=== PATIENT | male | born 1985 | race Hispanic/Latino ===

== ENCOUNTER 2024-01-04 07:52 | Emergency (ER) | payer SELFPAY ==
[2024-01-04 07:54] VITALS: BP 155/100
[2024-01-04 08:17] VITALS: BP 153/77
[2024-01-04] MEDS: ADACEL 0.5 ML IM (09:08)
[2024-01-04] MEDS: ANCEF 10 IV (09:08)
--- NOTE | 2024-01-04 09:17 | ED.GENMED ---
History of Present Illness
General
Chief Complaint: Skin Surface Trauma
Time Seen by Provider: 01/04/24 07:58
History of Present Illness
History of Present Illness:
38-year-old male presents to the emergency department for evaluation of a crush injury to the left middle finger. Was at work when his finger got crushed underneath a trailer hitch. There is a large laceration to the ulnar aspect with exposed
osseous and tendon tissue. Last tetanus is not known
Review of Systems
Review of Systems
Allergies reviewed?: Yes
All Other Systems: ROS reviewed and negative except as documented in HPI and ROS
Phy Exam
Physical Exam
Physical Exam:
GEN: Well appearing, NAD, WDWN
HEENT: Oral mucosa moist, no scleral icterus
Cardiac: Regular rate
Lung: No respiratory distress, no tachypnea
MSK: 5cm full thickness laceration to L middle finger from distal phalanx through middle phalanx, exposed osseus tissue and suspected tendon laceration
Skin: Good color, no pallor or jaundice, no rashes
Neuro: AO x3, moves all extremities freely
Psych: Calm, cooperative
Course
Orders/Labs/Results
Orders:
Orders
01/04/24 08:12
CeFAZolin 2 GRAM [Ancef] 2 grams in 10 ml IV NOW
Tetanus/Diphth/Acelpertussis [Adacel] 0.5 ml IM .ONCE ONE
CR Finger(s)/thumb Min 2 Vw Lt Urgent
Comment:
Reason For Exam: L middle finger crush injury
Indicate Which Finger:: Middle Finger
01/04/24 09:21
Oxycodone [Roxicodone] 5 mg PO NOW STA
Vital Signs
Initial and Last Documented VS:
Initial Vital Signs
Temp Pulse Resp BP Pulse Ox
98.2 F 86 18 155/100 100
01/04/24 07:54 01/04/24 07:54 01/04/24 07:54 01/04/24 07:54 01/04/24 07:54
Last Documented Vital Signs
Temp Pulse Resp BP Pulse Ox
98.2 F 104 18 153/77 99
01/04/24 07:54 01/04/24 08:17 01/04/24 08:17 01/04/24 08:17 01/04/24 08:17
Procedures
Laceration Closure
Left Third Finger:
Status of Wound: clean
Size of Wound in cm: 5
Description of Wound Edges: sharp
Preparation: cleaned with saline
Anesthesia: 1% Lidocaine with epi
Revision/Debridement: irrigate-direct pressure
Wound exploration: explored to base- no FB
Type of Closure: single layer closure
Skin Closure Material: 4-0 prolene
Additional information:
Single running suture, loosely closed
MDM/Problems Addressed
MDM/Problems Addressed:
Clinical and radiographic images were sent to hand surgery Dr. Glez for review, loose closure with reduction of fracture fragments and splinting performed in the ED and will be seen by Dr. Glez later this afternoon in the orthopedic office.
IV cefazolin and tetanus immunization booster administered in the ED, will prescribe pain medication and antibiotics prophylactically
*Critical Care Note
Total Time (30-74mins, 75-104mins- exclusive of procedures): Not Applicable
ED Attending Note
-
Portions of this chart may have been created with voice recognition software.� Occasional wrong word or��sound alike� substitutions may have occurred due to the inherent limitations of voice recognition software.
Discharge Plan
Departure
Patient Disposition: Home (Routine Discharge)
Date of Disposition: 01/04/24
Time of Disposition: 09:17
Patient with high blood pressure during this ER visit?: Yes
Discharge Problem:
Open fracture of middle phalanx of left middle finger
Prescriptions:
New
cephalexin 500 mg capsule
500 mg PO Q8H 7 Days Qty: 21 0RF
oxycodone 5 mg tablet
5 mg PO Q8H PRN (Reason: Pain) Qty: 12 0RF
Referrals:
Anthony Donaldson MD [Active] -
Activity Restrictions/Additional Instructions:
Go directly to the [facility] office at the ambulatory building at the hospital, you will be seeing Dr Donaldson. If there are any issues with his appointment and you cannot be seen, come back to the ER.
I have sent prescriptions to your pharmacy for antibiotics and pain medicine. Please start these medicines at your earliest convenience
Interventions
Interventions:
*Risk Screen - Suicide Last Done: 01/04/24 07:54
*General Assessment Last Done: 01/04/24 07:54
*Neglect/Abuse Screening Last Done: 01/04/24 07:54
ED- Fall Risk Assessment Last Done: 01/04/24 09:00
*ED COVID-19 Vaccine History Last Done: 01/04/24 08:07
*Nursing Disposition Last Done: 01/04/24 09:47
ED-Skin Assessment Last Done: 01/04/24 09:00
Discharge Date and Time
Discharge Date/Time: 01/04/24 09:48
Print Language: SURINAMESE
[2024-01-04] MEDS: ROXICODONE 5 MG PO (09:42)
== END 2024-01-04 09:48 | disposition home or self-care (01) ==
LOC: EMR 07:52
PROVIDERS: EMERGENCY PHYSICIAN Emergency Medicine
DX: S62.623B Displaced fracture of middle phalanx of left middle finger, initial encounter for open fracture (principal); W23.0XXA Caught, crushed, jammed, or pinched between moving objects, initial encounter; Z23 Encounter for immunization
CPT/HCPCS: 99285; 13132; 96374; 90471; 73140; 90715

== ENCOUNTER 2024-01-08 06:18 | Day surgery (SDC) | payer OTHER, SELFPAY ==
[2024-01-08] VITALS (10 sets, daily range): BP systolic 127–151; BP diastolic 83–99; BMI 29.8
[2024-01-08] MEDS: CELEBREX 200 MG PO (10:36)
[2024-01-08] MEDS: TYLENOL 1000 MG PO (10:36)
[2024-01-08] MEDS: ZOFRAN 4 MG IV (16:17)
== END 2024-01-08 16:55 | disposition home or self-care (01) ==
LOC: SDS 06:18
PROVIDERS: ATTENDING PHYSICIAN Orthopaedic Surgery Hand Surgery
DX: S67.193A Crushing injury of left middle finger, initial encounter (principal); W23.0XXA Caught, crushed, jammed, or pinched between moving objects, initial encounter; Y99.0 Civilian activity done for income or pay
CPT/HCPCS: 26075; 26418; C1713

== ENCOUNTER 2024-03-28 11:46 | Outpatient (RCR) | payer OTHER, SELFPAY | END 2024-03-28 23:59 | disposition home or self-care (01) | LOC: ROT 11:46 | PROVIDERS: ATTENDING PHYSICIAN Orthopaedic Surgery Hand Surgery | DX: Z47.89 Encounter for other orthopedic aftercare (principal); Z73.6 Limitation of activities due to disability | CPT/HCPCS: 97010; 97110; 97140; 97166; 97535; 97760 ==

== ENCOUNTER 2024-04-25 10:07 | Outpatient (RCR) | payer OTHER, SELFPAY | END 2024-04-25 23:59 | disposition home or self-care (01) | LOC: ROT 10:07 | PROVIDERS: ATTENDING PHYSICIAN Orthopaedic Surgery Hand Surgery | DX: Z47.89 Encounter for other orthopedic aftercare (principal); R53.1 Weakness; Z73.6 Limitation of activities due to disability | CPT/HCPCS: 97010; 97110; 97140 ==

== ENCOUNTER 2024-05-14 11:26 | Outpatient (RCR) | payer OTHER, SELFPAY | END 2024-05-14 23:59 | disposition home or self-care (01) | LOC: ROT 11:26 | PROVIDERS: ATTENDING PHYSICIAN Orthopaedic Surgery Hand Surgery | DX: Z47.89 Encounter for other orthopedic aftercare (principal); M25.542 Pain in joints of left hand; R53.1 Weakness; L92.9 Granulomatous disorder of the skin and subcutaneous tissue, unspecified; W23.0XXD Caught, crushed, jammed, or pinched between moving objects, subsequent encounter; Y93.89 Activity, other specified; Z73.6 Limitation of activities due to disability; Y92.89 Other specified places as the place of occurrence of the external cause; Y99.0 Civilian activity done for income or pay | CPT/HCPCS: 97010; 97110; 97530 ==

== ENCOUNTER 2024-10-24 10:30 | Outpatient (RCR) | payer OTHER, SELFPAY | END 2024-10-24 23:59 | disposition home or self-care (01) | LOC: ROT 10:30 | PROVIDERS: ATTENDING PHYSICIAN Orthopaedic Surgery Hand Surgery | DX: Z47.89 Encounter for other orthopedic aftercare (principal); S67.193D Crushing injury of left middle finger, subsequent encounter; Z73.6 Limitation of activities due to disability; W23.0XXD Caught, crushed, jammed, or pinched between moving objects, subsequent encounter; Y93.89 Activity, other specified; Y92.89 Other specified places as the place of occurrence of the external cause; Y99.0 Civilian activity done for income or pay | CPT/HCPCS: 97018; 97022; 97110; 97140; 97166; 97535 ==

== ENCOUNTER 2024-11-04 10:21 | Outpatient (RCR) | payer OTHER, SELFPAY | END 2024-11-04 23:59 | disposition home or self-care (01) | LOC: ROT 10:21 | PROVIDERS: ATTENDING PHYSICIAN Orthopaedic Surgery Hand Surgery | DX: Z47.89 Encounter for other orthopedic aftercare (principal); S67.193D Crushing injury of left middle finger, subsequent encounter; Z73.6 Limitation of activities due to disability; W23.0XXD Caught, crushed, jammed, or pinched between moving objects, subsequent encounter; Y93.89 Activity, other specified; Y92.89 Other specified places as the place of occurrence of the external cause; Y99.0 Civilian activity done for income or pay | CPT/HCPCS: 97018; 97110; 97140 ==